=== PATIENT | female | born 1990 | race American Indian/Alaskan Native ===

== ENCOUNTER 2018-07-13 08:23 | Emergency (ER) | payer MEDICAID ==
[2018-07-13 08:29] VITALS: BP 120/49
[2018-07-13] MEDS ORDERED: IBUPROFEN PO ONE (09:17)
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
== END 2018-07-13 09:27 | disposition home or self-care (01) ==
LOC: ED 08:23
DX: J06.9 Acute upper respiratory infection, unspecified (principal)
CPT/HCPCS: 99282